=== PATIENT | female | born 1985 | race American Indian/Alaskan Native ===

== ENCOUNTER 2021-07-07 17:28 | Emergency (ER) | payer OTHER ==
[2021-07-07 18:03] VITALS: BP 128/75
--- NOTE | 2021-07-07 18:07 | Emergency Department Report ---
ED Female HPI - General Chief complaint: Abdominal Pain Stated complaint: PAIN/DISCHARGE Time Seen by Provider: 07/07/21 17:56 Source: patient Mode of arrival: Ambulatory Limitations: No Limitations - History of Present Illness Initial comments: 36-year-old black female with past medical history of schizophrenia, bipolar, insomnia, and anemia presents to the emergency department for evaluation of 1 week history of vaginal discharge. She states that discharge has been getting increasingly worse, is often greenish colored, and malodorous like fish. Patient states that she has a history of recurrent bacterial vaginosis and her discharge is malodorous just like he usually is when she has BV. She denies fever, dysuria, and abdominal pain. MD Complaint: vaginal discharge -: Gradual, week(s) (1) Severity scale (0 -10): 0 Are you Now?: No Associated Symptoms: vaginal discharge. denies: vaginal bleeding, abdominal pain, nausea/vomiting, fever/chills, headaches, loss of appetite, dysuria, hematuria, rash, seizure, shortness of breath, syncope, weakness - Related Data Sexually active: Yes Previous Rx's Medication Instructions Recorded Last Taken Type Ferrous Sulfate [Ferrous Sulfate 324 mg PO DAILY #30 tab 07/07/21 Unknown Rx 324 MG] metroNIDAZOLE [Flagyl] 500 mg PO Q12HR #14 tab 07/07/21 Unknown Rx Allergies Allergy/AdvReac Type Severity Reaction Status Date / Time No Known Allergies Allergy Verified 07/07/21 17:32 ED Review of Systems ROS: Stated complaint: PAIN/DISCHARGE Other details as noted in HPI Comment: All other systems reviewed and negative Constitutional: denies: chills Eyes: denies: vision change Respiratory: denies: cough, shortness of breath, SOB with exertion, SOB at rest, wheezing Cardiovascular: denies: chest pain, palpitations, dyspnea on exertion Gastrointestinal: denies: abdominal pain, nausea, vomiting, diarrhea, constipation, hematemesis, melena, hematochezia Genitourinary: discharge. denies: urgency, dysuria, frequency, hematuria, dyspareunia Musculoskeletal: denies: back pain Neurological: denies: headache, weakness, numbness, paresthesias, abnormal gait ED Past Medical Hx - Medications Home Medications: Home Medications Medication Instructions Recorded Confirmed Last Taken Type Ferrous Sulfate [Ferrous Sulfate 324 mg PO DAILY #30 tab 07/07/21 Unknown Rx 324 MG] metroNIDAZOLE [Flagyl] 500 mg PO Q12HR #14 tab 07/07/21 Unknown Rx ED Physical Exam - General Limitations: No Limitations General appearance: alert, in no apparent distress - Head Head exam: Present: atraumatic, normocephalic - Eye Eye exam: Present: normal appearance. Absent: conjunctival injection - Neck Neck exam: Present: normal inspection. Absent: lymphadenopathy - Respiratory Respiratory exam: Present: normal lung sounds bilaterally. Absent: respiratory distress, wheezes, rales, rhonchi, stridor, chest wall tenderness - Cardiovascular Cardiovascular Exam: Present: regular rate, normal heart sounds - GI/Abdominal GI/Abdominal exam: Present: soft, normal bowel sounds. Absent: distended, tenderness, guarding, rebound, rigid - Extremities Exam Extremities exam: Present: normal inspection, normal capillary refill. Absent: pedal edema, joint swelling, calf tenderness - Back Exam Back exam: Present: normal inspection. Absent: CVA tenderness (R), CVA tenderness (L) - Neurological Exam Neurological exam: Present: alert, oriented X3 - Psychiatric Psychiatric exam: Present: normal affect, normal mood - Skin Skin exam: Present: warm, dry, intact, normal color ED Course Vital Signs 07/07/21 07/07/21 17:32 18:01 Temperature 98.3 F 98.8 F Pulse Rate 62 77 Respiratory 18 20 Rate Blood Pressure 142/84 Blood Pressure 128/75 [Right] O2 Sat by Pulse 100 100 Oximetry ED Medical Decision Making - Medical Decision Making 36-year-old black female with past medical history of schizophrenia, bipolar, insomnia, and anemia presents to the emergency department for evaluation of 1 week history of vaginal discharge. She states that discharge has been getting increasingly worse, is often greenish colored, and malodorous like fish. Patient states that she has a history of recurrent bacterial vaginosis and her discharge is malodorous just like he usually is when she has BV. She denies fever, dysuria, and abdominal pain. No gross abnormalities noted on exam. Patient states that she has had bacterial vaginosis many times and does not want to be tested but is just requesting treatment. Based on description of vaginal discharge and patient history, she will be discharged home with prescription for Flagyl 500 mg twice daily for 7 days along with a refill of her iron pills. She is advised to take medications as prescribed and follow-up with primary care provider or [facility] if no improvement or worsening symptoms. He verbalized understanding of and agreement with plan of care. Critical care attestation.: If time is entered above; I have spent that time in minutes in the direct care of this critically ill patient, excluding procedure time. ED Disposition Clinical Impression: Vaginal discharge, Medication refill Disposition: 01 HOME / SELF CARE / HOMELESS Is pt being admited?: No Does the pt Need Aspirin: No Condition: Stable Instructions: Vaginitis, [id number], Bacterial Vaginosis, [id number], Abdominal Pain (ED) Additional Instructions: Take medications as prescribed. Follow-up with primary care provider if no improvement or worsening symptoms. Prescriptions: Ferrous Sulfate [Ferrous Sulfate 324 MG] 324 mg PO DAILY #30 tab metroNIDAZOLE [Flagyl] 500 mg PO Q12HR #14 tab Referrals: JULIAN LEWIS MD [Staff Physician] - 3-5 Days Time of Disposition: 18:07
== END 2021-07-07 18:20 | disposition home or self-care (01) ==
LOC: ED 17:28
DX: N89.8 Other specified noninflammatory disorders of vagina (principal); Z76.0 Encounter for issue of repeat prescription; F20.9 Schizophrenia, unspecified; F31.9 Bipolar disorder, unspecified; Z79.899 Other long term (current) drug therapy
CPT/HCPCS: 99282

== ENCOUNTER 2021-07-19 16:00 | Emergency (ER) | payer OTHER ==
[2021-07-19] MEDS ORDERED: IBUPROFEN 600 MG TAB PO ONE (18:49)
--- NOTE | 2021-07-19 18:52 | Emergency Department Report ---
Pediatric URI - HPI Chief Complaint: Fever Stated Complaint: FLU LIKE SX/WEAK Time Seen by Provider: 07/19/21 18:48 Duration: Today Symptoms: Yes Rhinorrhea, Yes Cough, Yes Sick Contacts, Yes Able to Tolerate Fluids, Yes Good Urine Output, No Listless Behavior Other History: 36-year-old -Stateless female presents to the emergency room complaining of flulike symptoms that started today. Patient states that she had coughed and had black stuff in it. Patient does vape. She did admits to nausea vomiting and fever. States her last menstrual period was 07/13/2021. She currently does not have a primary care provider. She has no known drug allergies. She has a history of schizophrenia and bipolar currently taking her Abilify and hydroxyzine. ED Review of Systems ROS: Stated complaint: FLU LIKE SX/WEAK Other details as noted in HPI Comment: All other systems reviewed and negative Constitutional: chills, fever Respiratory: cough Neurological: headache ED Peds URI Exam - Exam General: Vital signs noted. No distress. Alert and acting appropriately. HEENT: Yes Moist Mucous Membranes, No Pharyngeal Erythema, No Pharyngeal Exudates, No Rhinorrhea, No Conjuctival Injection, No Frontal Tenderness, No Maxillary Tenderness Ear: Neither TM Bulge, Neither TM Erythema, Neither EAC Pain, Neither EAC Discharge, Neither Cerumen Impaction Neck: No Adenopathy, No Supple Lungs: No Good Air Exchange, No Wheezes, No Ronchi, No Stridor, No Cough, No Labored Respirations, No Retractions, No Use of Accessory Muscles, No Other Abnormal Lung Sounds Heart: Yes Regular, No Murmur Abdomen: Yes Normal Bowel Sounds, No Tenderness, No Peritoneal Signs Skin: No Rash, No Eczema Neurologic: Alert and oriented, no deficits. Musculoskeletal: Unremarkable. ED Course Vital Signs 07/19/21 18:25 Temperature 102.0 F H Pulse Rate 103 H Respiratory 18 Rate Blood Pressure 127/58 O2 Sat by Pulse 100 Oximetry ED Medical Decision Making - Medical Decision Making 36-year-old -Stateless female presents to the emergency room complaining of flulike symptoms that started today. Patient states that she had coughed and had black stuff in it. Patient does vape. She did admits to nausea vomiting and fever. States her last menstrual period was 07/13/2021. She currently does not have a primary care provider. She has no known drug allergies. She has a history of schizophrenia and bipolar currently taking her Abilify and hydroxyzine. Ibuprofen 600 mg for fever and rapid flu to be sent out to lab. Negative flu. Recommend patient to get COVID testing. Critical care attestation.: If time is entered above; I have spent that time in minutes in the direct care of this critically ill patient, excluding procedure time. ED Disposition Clinical Impression: URI, acute Disposition: 01 HOME / SELF CARE / HOMELESS Is pt being admited?: No Does the pt Need Aspirin: No Condition: Stable Instructions: Viral Respiratory Infection, [id number] Additional Instructions: Your symptoms appear most consistent with a nonspecific viral syndrome. However, given this current pandemic, COVID-19 is in the differential of possibilities. Despite your previous negative COVID-19 test, I do recommend repeat outpatient Covid 19 testing. In the meantime, isolate/quarantine yourself and stay away from anyone who is elderly, immunocompromised or chronically ill. You can use ibuprofen every 6-8 hours and Tylenol every 4-8 hours, using the dosing on the back of the bottle, as needed for any fever or body aches. Return to the emergency department with any worsening of your symptoms, development of chest pain or shortness of breath, or with any acute distress. Flu test was negative. Referrals: GINO OMALLEY MD [Staff Physician] - 3-5 Days Forms: Work/School Release Form(ED) Time of Disposition: 20:06
[2021-07-19 20:49] VITALS: BP 134/72
== END 2021-07-19 20:48 | disposition home or self-care (01) ==
LOC: ED 16:00
DX: J06.9 Acute upper respiratory infection, unspecified (principal)
CPT/HCPCS: 87400; 99283